=== PATIENT | female | born 1945 | race Caucasian/White ===

== ENCOUNTER 2019-10-16 15:00 | Inpatient (IN) | payer OTHER ==
[2019-10-16] MEDS ORDERED: ACETAMINOPHEN 500 MG TAB ONE (15:35)
[2019-10-16] MEDS ORDERED: NA CHLORIDE 0.9% 1,000 ML ONE (15:36)
[2019-10-16 16:01] LABS: Absolute Lymphocytes (CBC) 2.4 K/uL (0.7-4.9); Basophils % 0.3 % (0-1.3); Hematocrit 40.8 % (36.0-45.0); Lymphocytes % 8.4 % (15.3-44.8); MPV 9.7 fL (7.6-11.3); RBC Red Blood Cell Count 4.39 M/uL (3.86-4.86)
--- NOTE | 2019-10-16 16:03 | RAD REPORT ---
EXAM DESCRIPTION: CT - CTHCSPWOC - 10/16/2019 3:45 pm CLINICAL HISTORY: Trauma, head and neck injury. NUMBNESS/TINGLING COMPARISON: No comparisons TECHNIQUE: Axial 5 mm thick images of the head were obtained. Axial 2 mm thick images of the cervical spine were obtained with sagittal and coronal reconstruction images generated and reviewed. All CT scans are performed using dose optimization technique as appropriate and may include automated exposure control or mA/KV adjustment according to patient size. FINDINGS: CT HEAD WITHOUT CONTRAST: No acute hemorrhage, hydrocephalus or extra-axial collection is identified.No areas of brain edema or midline shift. The paranasal sinuses and mastoids are clear.The calvarium is intact. Right scalp hematoma is present . CT CERVICAL SPINE WITHOUT CONTRAST: No fracture or subluxation.Prominent disc thinning with posterior osteophyte is present at C3-4 and C 5-6.No prevertebral soft tissues swelling is identified. Several vague ground-glass nodules are seen in the right upper lobe, incompletely assessed. Atherosclerosis of both carotid bulbs noted. IMPRESSION: No acute intracranial or cervical spine findings.
--- NOTE | 2019-10-16 16:03 | RAD REPORT ---
EXAM DESCRIPTION: RAD - C Spine Ap/Lat - 10/16/2019 3:57 pm CLINICAL HISTORY: PAIN COMPARISON: Head C Spine Mpr Wo Con dated 10/16/2019 FINDINGS: Cervical bodies are normal in height and alignment.No fracture or acute bony process seen. Disc thinning with posterior osteophyte formation is present at C3-4 and C5-6. No prevertebral soft tissue thickening or other suspicious soft tissue finding. Carotid atherosclerosis. IMPRESSION: Moderate cervical degenerative changes.
[2019-10-16 16:04] LABS: Protime INR 1.01
[2019-10-16 16:12] LABS: Albumin 3.4 g/dL (3.4-5.0); Bilirubin Direct 0.2 mg/dL (0-0.2); Bilirubin Total 0.8 mg/dL (0.2-1.0); CKMB Creatine Kinase MB 1.6 ng/mL (0.3-3.6); Potassium 3.6 mmol/L (3.5-5.1); Protein, Total 6.7 g/dL (6.4-8.2); Troponin (Emerg Dept Use Only) 0.05 ng/mL (0.0-0.045)
--- NOTE | 2019-10-16 17:08 | RAD REPORT ---
EXAM DESCRIPTION: RAD - Chest Single View - 10/16/2019 5:01 pm CLINICAL HISTORY: CONGESTION Chest pain. COMPARISON: No comparisons FINDINGS: Portable technique limits examination quality. Mild areas of ill-defined opacities are seen in the right lung base and right upper lobe suspicious f or infiltrate/pneumonia. Left lung is grossly clear. The heart is normal in size. No displaced fractu res. IMPRESSION: Mild areas of developing infiltrate/pneumonia in the right lung.
[2019-10-16] MEDS ORDERED: CEFTRIAXONE/SWI 1gm 1 GM/10 ML SYR ONE (17:27)
--- NOTE | 2019-10-16 17:29 | ER ---
Nurse's Notes [facility] Name: Concha Mark Age: 73 yrs Sex: Female : 1945 Arrival Date: 10/16/2019 Time: 15:01 Bed 6 Private MD: Cayetano Gibson R Diagnosis: Pneumonia in diseases classified elsewhere;Syncope and collapse Presentation: 10/16 15:07 Presenting complaint: Patient states: "Last night I was sick to my stomach a couple of iw time and then this morning I just didn't feel good, I was dizzy and the next thing I knew I was on the floor with a big knot in my head and my eye sight is just not clear since then and my jaws is really tight and my head is hurting" Patient appears pale, denies CP, SOB. Care prior to arrival: None. Mechanism of Injury: Fall from standing position. Trauma event details: Injury occurred in the [facility]. 15:07 Acuity: ISELA 2 iw 15:07 Method Of Arrival: Wheelchair iw 15:10 Transition of care: patient was not received from another setting of care. Onset of iw symptoms was October 16, 2019 at 10:30. Risk Assessment: Do you want to hurt yourself or someone else? Patient reports no desire to harm self or others. Initial Sepsis Screen: Does the patient meet any 2 criteria? No. Patient's initial sepsis screen is negative. Does the patient have a suspected source of infection? No. Patient's initial sepsis screen is negative. Triage Assessment: 15:14 General: Appears in no apparent distress. uncomfortable, Behavior is calm, cooperative, iw appropriate for age. Pain: Complains of pain in right jaw, left jaw and right temporal area Pain currently is 5 out of 10 on a pain scale. Neuro: Level of Consciousness is awake, alert, obeys commands. Cardiovascular: Patient's skin is warm and dry. Respiratory: Airway is patent Respiratory effort is even, unlabored, Respiratory pattern is regular, symmetrical. Trauma Activation: Not Applicable Physician: ED Physician; Name: ; Notified At: ; Arrived At: Physician: General Surgeon; Name: ; Notified At: ; Arrived At: Physician: Radiology; Name: ; Notified At: ; Arrived At: Physician: Respiratory; Name: ; Notified At: ; Arrived At: Physician: Lab; Name: ; Notified At: ; Arrived At: Historical: - Allergies: 15:14 "An antibiotic and a pain pill but I can't remember the name"; iw - Home Meds: 15:14 citalopram 40 mg tab 1 tab once daily [Active]; Iron CR Oral daily [Active]; iw atorvastatin 40 mg oral tab 1 tab once daily [Active]; propranolol 10 mg Oral tab 2 tabs twice daily [Active]; lisinopril 20 mg Oral tab 1 tab once daily [Active]; aspirin 81 mg Oral chew 1 tab once daily [Active]; temazepam 30 mg Oral cap 1 cap once daily [Active]; triamterene-hydrochlorothiazid 75-50 mg Oral tab 1 tab once daily [Active]; clopidogrel 75 mg oral tab 1 tab once daily [Active]; oxybutynin chloride 5 mg Oral tab 1 tab daily [Active]; - PMHx: 15:14 Myocardial infarction; Hypertension; Hyperlipidemia; iw - Immunization history:: Flu vaccine is not up to date. - Immunization history: Last tetanus immunization: unknown. - Coronavirus screen:: The patient has NOT traveled to [place], [place], or [place] in the past 14 days. - Social history:: Patient/guardian denies using alcohol, street drugs, The patient lives with family, with spouse, Smoking status: Patient/guardian denies using tobacco. - Family history:: not pertinent. - Ebola Screening: : Patient denies travel to an Ebola-affected area in the 21 days before illness onset. - Hospitalizations: : No recent hospitalization is reported. Screenin:07 Abuse screen: Denies threats or abuse. Denies injuries from another. Tuberculosis iw screening: No symptoms or risk factors identified. 15:26 Nutritional screening: No deficits noted. Fall Risk Secondary diagnosis (15 points) tw2 impaired mobility. Primary Survey: 15:07 NO uncontrolled hemorrhage observed. A: The patient is alert. Airway: patent. iw Breathing/Chest: Respiratory pattern: regular, Respiratory effort: spontaneous, unlabored. Circulation: Skin color: pale. Disability Alert. 15:26 Exposure/Environment: All clothing and personal items were removed. Forensic evidence tw2 collection is not deemed to be indicated at this time. Items placed in patient belonging bag. There is no evidence of uncontrolled external bleeding. Obvious injury(ies) are noted at this time: bruising and swelling noted to right forehead and right side of jaw A warming method has been applied: A warm blanket has been provided to the patient. 16:19 Reassessment Airway Airway Patent Breathing/Chest Respiratory pattern Regular tw2 Respiratory effort Spontaneous Unlabored Breath sounds Clear Chest inspection Symmetrical Circulation Heart rhythm Sinus rhythm Heart tones Present Disability Alert. Secondary Survey: 16:20 HEENT: Eyes: Other bruising noted above RIGHT eye, pt reports blurred vision when any tw2 pressure is placed on the back right side of head. Gastrointestinal: Abdomen is soft, Bowel sounds present in all quadrants. : No signs and/or symptoms were reported regarding the genitourinary system. Musculoskeletal: Range of motion: intact in all extremities. Assessment: 15:08 General: Appears in no apparent distress. well groomed, Behavior is calm, cooperative, tw2 appropriate for age. Pain: Complains of pain in face and right temporal area and right jaw. Neuro: Level of Consciousness is awake, alert, obeys commands, Oriented to person, place, time, situation. EENT: Reports blurred vision "when i lay on the back or right side of my head my vision is just not right". Cardiovascular: Heart tones S1 S2 Patient's skin is warm and dry. Respiratory: Airway is patent Respiratory effort is even, unlabored, Respiratory pattern is regular, symmetrical, Breath sounds are clear bilaterally. GI: No signs and/or symptoms were reported involving the gastrointestinal system. Abdomen is flat, Bowel sounds present X 4 quads. : No signs and/or symptoms were reported regarding the genitourinary system. Derm: Bruising that is bright red, yellow, on right temporal area and right jaw. Musculoskeletal: Range of motion: intact in all extremities. 16:39 Reassessment: Patient appears in no apparent distress at this time. No changes from tw2 previously documented assessment. Patient and/or family updated on plan of care and expected duration. Pain level reassessed. Patient is alert, oriented x 3, equal unlabored respirations, skin warm/dry/pink. 17:35 Reassessment: Dr Ruff at the bedside. sv 18:26 Reassessment: Patient appears in no apparent distress at this time. No changes from tw2 previously documented assessment. Patient and/or family updated on plan of care and expected duration. Pain level reassessed. Patient is alert, oriented x 3, equal unlabored respirations, skin warm/dry/pink. 19:30 General: Appears in no apparent distress. comfortable, Behavior is calm, cooperative, rr5 appropriate for age. Neuro: Level of Consciousness is awake, alert, obeys commands, Oriented to person, place, time, situation. Cardiovascular: Capillary refill < 3 seconds Patient's skin is warm and dry. Respiratory: Airway is patent Respiratory effort is even, unlabored, Respiratory pattern is regular, symmetrical. GI: No signs and/or symptoms were reported involving the gastrointestinal system. : No signs and/or symptoms were reported regarding the genitourinary system. EENT: Reports blurred vision. Derm: Skin temperature is warm Bruising that is bright red, yellow, on right jaw and temporal. Musculoskeletal: Circulation, motion, and sensation intact. Capillary refill < 3 seconds. Vital Signs: 15:07 BP 101 / 50; Pulse 76; Resp 18; Temp 97.8; Pulse Ox 94% on R/A; Weight 77.11 kg (R); iw Height 5 ft. 2 in. (157.48 cm) (R); Pain 5/10; 16:08 BP 107 / 53; Pulse 67; Resp 19; Pulse Ox 96% ; sv 17:27 BP 104 / 57; Pulse 63; Resp 14; Pulse Ox 96% ; sv 18:25 BP 109 / 53; Pulse 64; Resp 17; Pulse Ox 95% on R/A; tw2 19:30 BP 105 / 60; Pulse 65; Resp 19; Temp 98; Pulse Ox 99% ; rr5 20:00 BP 107 / 55; Pulse 80; Resp 19; Temp 97.7; Pulse Ox 97% ; rr5 15:07 Body Mass Index 31.09 (77.11 kg, 157.48 cm) iw [place] Coma Score: 15:07 Eye Response: spontaneous(4). Verbal Response: oriented(5). Motor Response: obeys iw commands(6). Total: 15. Trauma Score (Adult): 15:07 Eye Response: spontaneous(1); Verbal Response: oriented(1); Motor Response: obeys iw commands(2); Systolic BP: > 89 mm Hg(4); Respiratory Rate: 10 to 29 per min(4); [place] Score: 15; Trauma Score: 12 ED Course: 15:01 Patient arrived in ED. as 15:03 Cayetano Gibson MD is Private Physician. as 15:07 Patient has correct armband on for positive identification. iw 15:07 Patient maintains SpO2 saturation greater than 95% on room air. iw 15:08 Triage completed. iw 15:14 Arm band placed on Patient placed in an exam room. iw 15:23 Sandra Molina RN is Primary Nurse. tw2 15:27 Renee Jones MD is Attending Physician. ma2 15:28 Thermoregulation: warm blanket given to patient. tw2 15:34 EKG done, by ED staff, reviewed by Renee Jones MD. jb1 15:39 Inserted saline lock: 22 gauge in right wrist, using aseptic technique. Blood collected.tw2 15:46 CT Head C Spine In Process Unspecified. EDMS 15:57 XRAY C Spine Ap/lat In Process Unspecified. EDMS 16:19 Notified ED physician of a critical lab result(s). WBC 29.1. tw2 16:35 Straight cath inserted, using sterile technique, 18 Fr. Returned baldomero urine. Patient tw2 tolerated well. NOEMY Diaz served as odd job laborer. 17:04 CXR XRAY In Process Unspecified. EDMS 17:27 Aminah Ruff MD is Hospitalizing Provider. ma2 19:06 Thorax Wo Con In Process Unspecified. EDMS 19:14 Report given to Tawny SALGUERO and Josse SALGUERO. sv 20:02 No provider procedures requiring assistance completed. Patient admitted, IV remains in rr5 place. intact, No redness/swelling at site. Administered Medications: 15:35 Drug: Tylenol 500 mg Route: PO; tw2 16:13 Follow up: Response: No adverse reaction tw2 15:49 Drug: NS 0.9% 1000 ml Route: IV; Rate: 1 bolus; Site: right wrist; tw2 16:59 Follow up: Response: No adverse reaction; IV Status: Completed infusion; IV Intake: tw2 1000ml 19:40 Follow up: IV Status: Completed infusion; IV Intake: 1000ml aa1 18:16 Drug: Rocephin 1 grams Route: IV; Rate: calculated rate; Site: right wrist; tw2 18:22 Follow up: Response: No adverse reaction; IV Status: Completed infusion tw2 18:22 Drug: AZITHromycin 500 mg Route: IVPB; Infused Over: 1 hrs; Site: right wrist; tw2 19:30 Follow up: Response: No adverse reaction; IV Status: Completed infusion; IV Intake: rr5 250ml Intake: 16:21 PO: 30ml (Water); Total: 30ml. tw2 16:59 IV: 1000ml; Total: 1030ml. tw2 19:30 IV: 250ml; Total: 1280ml. rr5 19:40 IV: 1000ml; Total: 2280ml. aa1 Outcome: 16:38 Patient's length of stay in the Emergency Department was greater than 2 hours. d/t tw2 imagingPatient's length of stay extended due to 17:28 Decision to Hospitalize by Provider. ma2 20:18 Admitted to Med/surg accompanied by tech, via stretcher, room 206, with chart, Report rr5 called to caraz 20:18 Condition: stable 20:18 Instructed on the need for admit. 20:40 Patient left the ED. rr5 Signatures: Dispatcher [employer] EDMS Alexis George jbCarey Mercado, Tawny Garrido RN, RN RN [email or web address] Zuleyma Foote Irene, RN RN iw Sandra Molina RN RN tw2 Renee Jones MD MD ma2 Josse Martin, RN RN rr5 Corrections: (The following items were deleted from the chart) 16:25 16:12 BP 71 / 60; Pulse 104bpm; Resp 16bpm; Pulse Ox 88% RA; Pt placed on O2 \\T\\ 3L per sv NC. O2 sat up to 99%. Informed Dr Jones of the vitals, ordered to give NS 500 mls bolus.; sv 16:39 16:35 Straight cath inserted, using sterile technique, 18 Fr. Returned baldomero urine. tw2 Patient tolerated well. tw2
--- NOTE | 2019-10-16 17:29 | EDPHYS ---
Physician Documentation [facility] Name: Concha Mark Age: 73 yrs Sex: Female : 1945 Arrival Date: 10/16/2019 Time: 15:01 Bed 6 Private MD: Cayetano Gibson R ED Physician Renee Jones HPI: 10/16 17:24 This 73 yrs old Female presents to ER via Wheelchair with complaints of ma2 Passed Out Prior To Arrival, Fall Injury, Weakness. 17:24 The patient has experienced syncope. Onset: The symptoms/episode began/occurred ma2 gradually, 1 hour(s) ago. Associated injury: Head/face: forehead. Associated signs and symptoms: Pertinent negatives: blurred vision, combativeness, diaphoresis. The patient has not experienced similar symptoms in the past. Historical: - Allergies: 15:14 "An antibiotic and a pain pill but I can't remember the name"; iw - Home Meds: 15:14 citalopram 40 mg tab 1 tab once daily [Active]; Iron CR Oral daily [Active]; iw atorvastatin 40 mg oral tab 1 tab once daily [Active]; propranolol 10 mg Oral tab 2 tabs twice daily [Active]; lisinopril 20 mg Oral tab 1 tab once daily [Active]; aspirin 81 mg Oral chew 1 tab once daily [Active]; temazepam 30 mg Oral cap 1 cap once daily [Active]; triamterene-hydrochlorothiazid 75-50 mg Oral tab 1 tab once daily [Active]; clopidogrel 75 mg oral tab 1 tab once daily [Active]; oxybutynin chloride 5 mg Oral tab 1 tab daily [Active]; - PMHx: 15:14 Myocardial infarction; Hypertension; Hyperlipidemia; iw - Immunization history:: Flu vaccine is not up to date. - Immunization history: Last tetanus immunization: unknown. - Coronavirus screen:: The patient has NOT traveled to [place], [place], or [place] in the past 14 days. - Social history:: Patient/guardian denies using alcohol, street drugs, The patient lives with family, with spouse, Smoking status: Patient/guardian denies using tobacco. - Family history:: not pertinent. - Ebola Screening: : Patient denies travel to an Ebola-affected area in the 21 days before illness onset. - Hospitalizations: : No recent hospitalization is reported. ROS: 17:24 Constitutional: Negative for fever, chills, and weight loss. ma2 17:24 All other systems are negative. Exam: 17:24 Constitutional: This is a well developed, well nourished patient who is awake, alert, ma2 and in no acute distress. Chest/axilla: Normal chest wall appearance and motion. Nontender with no deformity. No lesions are appreciated. Cardiovascular: Regular rate and rhythm with a normal S1 and S2. No gallops, murmurs, or rubs. Normal PMI, no JVD. No pulse deficits. Respiratory: Lungs have equal breath sounds bilaterally, clear to auscultation and percussion. No rales, rhonchi or wheezes noted. No increased work of breathing, no retractions or nasal flaring. Abdomen/GI: Soft, non-tender, with normal bowel sounds. No distension or tympany. No guarding or rebound. No evidence of tenderness throughout. 17:24 Eyes: Pupils equal round and reactive to light, extra-ocular motions intact. Lids and lashes normal. Conjunctiva and sclera are non-icteric and not injected. Cornea within normal limits. Periorbital areas with no swelling, redness, or edema. ENT: Nares patent. No nasal discharge, no septal abnormalities noted. Tympanic membranes are normal and external auditory canals are clear. Oropharynx with no redness, swelling, or masses, exudates, or evidence of obstruction, uvula midline. Mucous membranes moist. Neck: Trachea midline, no thyromegaly or masses palpated, and no cervical lymphadenopathy. Supple, full range of motion without nuchal rigidity, or vertebral point tenderness. No Meningismus. MS/ Extremity: Pulses equal, no cyanosis. Neurovascular intact. Full, normal range of motion. Neuro: Awake and alert, GCS 15, oriented to person, place, time, and situation. Cranial nerves II-XII grossly intact. Motor strength 5/5 in all extremities. Sensory grossly intact. Cerebellar exam normal. Normal gait. Vital Signs: 15:07 BP 101 / 50; Pulse 76; Resp 18; Temp 97.8; Pulse Ox 94% on R/A; Weight 77.11 kg (R); iw Height 5 ft. 2 in. (157.48 cm) (R); Pain 5/10; 16:08 BP 107 / 53; Pulse 67; Resp 19; Pulse Ox 96% ; sv 17:27 BP 104 / 57; Pulse 63; Resp 14; Pulse Ox 96% ; sv 18:25 BP 109 / 53; Pulse 64; Resp 17; Pulse Ox 95% on R/A; tw2 19:30 BP 105 / 60; Pulse 65; Resp 19; Temp 98; Pulse Ox 99% ; rr5 20:00 BP 107 / 55; Pulse 80; Resp 19; Temp 97.7; Pulse Ox 97% ; rr5 15:07 Body Mass Index 31.09 (77.11 kg, 157.48 cm) iw Davidson Coma Score: 15:07 Eye Response: spontaneous(4). Verbal Response: oriented(5). Motor Response: obeys iw commands(6). Total: 15. Trauma Score (Adult): 15:07 Eye Response: spontaneous(1); Verbal Response: oriented(1); Motor Response: obeys iw commands(2); Systolic BP: > 89 mm Hg(4); Respiratory Rate: 10 to 29 per min(4); Davidson Score: 15; Trauma Score: 12 MDM: 15:27 Patient medically screened. ma2 17:24 Differential Diagnosis: idiopathic syncope, sepsis, vasovagal episode. Data reviewed: [facility] vital signs, nurses notes. Counseling: I had a detailed discussion with the patient and/or guardian regarding: the historical points, exam findings, and any diagnostic results supporting the discharge/admit diagnosis, the presence of at least one elevated blood pressure reading (>120/80) during this emergency department visit, the need for outpatient follow up. Response to treatment: the patient's symptoms have markedly improved after treatment. 10/16 15:30 Order name: Basic Metabolic Panel; Complete Time: 16:19 tn10/16 15:30 Order name: CBC with Diff 2 10/16 15:30 Order name: Ckmb; Complete Time: 16:19 tn10/16 15:30 Order name: CPK; Complete Time: 16:19 10/16 15:30 Order name: Hepatic Function; Complete Time: 16:19 tn10/16 15:30 Order name: Lipase; Complete Time: 16:19 tn10/16 15:30 Order name: Magnesium; Complete Time: 16:19 tn2 10/16 15:30 Order name: Protime (+inr); Complete Time: 16:21 ma2 10/16 15:30 Order name: Ptt, Activated; Complete Time: 16:21 ma2 10/16 15:30 Order name: Troponin (emerg Dept Use Only); Complete Time: 16:19 tn2 10/16 16:39 Order name: Urine Dipstick--Ancillary (enter results) 10/16 17:17 Order name: Blood Culture Adult (2) tn2 10/16 17:17 Order name: Lactate tn2 10/16 17:35 Order name: Manual Differential EDPA 10/16 15:30 Order name: XRAY C Spine Ap/lat; Complete Time: 16:11 tn2 10/16 15:30 Order name: CT Head C Spine; Complete Time: 16:11 tn2 10/16 16:22 Order name: CXR XRAY; Complete Time: 17:15 tn2 10/16 18:36 Order name: Echo with Doppler EDMS 10/16 18:36 Order name: CBC with Automated Diff EDMS 10/16 18:36 Order name: CBC with Automated Diff EDMS 10/16 18:36 Order name: Comprehensive Metabolic Panel EDMS 10/16 18:36 Order name: Comprehensive Metabolic Panel EDMS 10/16 18:36 Order name: Troponin I EDPA 10/16 18:36 Order name: Troponin I EDMS 10/16 18:38 Order name: Carotid Artery Bilateral EDMS 10/16 18:50 Order name: Sputum Gram Stain EDMS 10/16 18:50 Order name: Sputum Culture EDMS 10/16 18:51 Order name: Thorax Wo Con EDMS 10/16 15:30 Order name: EKG; Complete Time: 15:31 ma2 10/16 15:30 Order name: Cardiac monitoring; Complete Time: 15:30 ma2 10/16 15:30 Order name: EKG - Nurse/Tech; Complete Time: 15:30 tn2 10/16 15:30 Order name: IV Saline Lock; Complete Time: 15:46 ma2 10/16 15:30 Order name: Labs collected and sent; Complete Time: 15:46 ma2 10/16 15:30 Order name: NPO; Complete Time: 15:30 tn2 10/16 15:30 Order name: O2 Per Protocol; Complete Time: 15:30 [facility] 10/16 15:30 Order name: O2 Sat Monitoring; Complete Time: 15:30 [facility] 10/16 15:30 Order name: Urine Dipstick-Ancillary (obtain specimen); Complete Time: 16:40 [facility] 10/16 16:38 Order name: Straight Cath - Urine; Complete Time: 16:38 [facility] 10/16 18:36 Order name: CONS Pharmacy Consult [facility] 10/16 18:36 Order name: CONS Physician Consult [facility] 10/16 18:36 Order name: Heart Healthy [facility] 10/16 18:49 Order name: Social Service Consult [facility] Administered Medications: 15:35 Drug: Tylenol 500 mg Route: PO; tw2 16:13 Follow up: Response: No adverse reaction tw2 15:49 Drug: NS 0.9% 1000 ml Route: IV; Rate: 1 bolus; Site: right wrist; tw2 16:59 Follow up: Response: No adverse reaction; IV Status: Completed infusion; IV Intake: tw2 1000ml 19:40 Follow up: IV Status: Completed infusion; IV Intake: 1000ml aa1 18:16 Drug: Rocephin 1 grams Route: IV; Rate: calculated rate; Site: right wrist; tw2 18:22 Follow up: Response: No adverse reaction; IV Status: Completed infusion tw2 18:22 Drug: AZITHromycin 500 mg Route: IVPB; Infused Over: 1 hrs; Site: right wrist; tw2 19:30 Follow up: Response: No adverse reaction; IV Status: Completed infusion; IV Intake: rr5 250ml Disposition: 10/16/19 17:28 Hospitalization ordered by Aminah Ruff for Observation. Preliminary diagnosis are Pneumonia in diseases classified elsewhere, Syncope and collapse. - Bed requested for Telemetry/MedSurg (observation). - Status is Observation. rr5 - Condition is Stable. - Problem is new. - Symptoms are unchanged. Signatures: Dispatcher [employer] [facility] Ashli Schwarz RN RN bb Erika Lake RN RN Lia Sepulveda RN RN Sandra Molina RN RN tw2 Renee Jones MD MD tn2 Josse Martin RN RN rr5 Tawny Enrique RN aa1 Corrections: (The following items were deleted from the chart) 18:51 18:50 CT-CHEST WITHOUT CONTRAST ordered. EDMS EDMS 19:37 17:28 Hospitalization Ordered by Aminah Ruff MD for Observation. Preliminary cg diagnosis is Pneumonia in diseases classified elsewhere; Syncope and collapse. Bed requested for Telemetry/MedSurg (observation). Status is Observation. Condition is Stable. Problem is new. Symptoms are unchanged. ma2 20:17 19:37 10/16/2019 17:28 Hospitalization Ordered by Aminah Ruff MD for Observation. bb Preliminary diagnosis is Pneumonia in diseases classified elsewhere; Syncope and collapse. Bed requested for Telemetry/MedSurg (observation). Status is Observation. Condition is Stable. Problem is new. Symptoms are unchanged. cg 20:40 20:17 10/16/2019 17:28 Hospitalization Ordered by Aminah Ruff MD for Observation. rr5 Preliminary diagnosis is Pneumonia in diseases classified elsewhere; Syncope and collapse. Bed requested for Telemetry/MedSurg (observation). Status is Observation. Condition is Stable. Problem is new. Symptoms are unchanged. bb
[2019-10-16 17:35] LABS: Blood Morphology Comment NOT SEEN (NOT SEEN); Platelet Estimate ADEQ
[2019-10-16] MEDS ORDERED: AZITHROMYCIN IV 500 MG in NA CHLORIDE 0.9% 250 ML IVPB ONE (18:00)
[2019-10-16] MEDS ORDERED: GUAIFENESIN/DM 5 ML UCUP PO PRN (18:24)
[2019-10-16] MEDS ORDERED: MORPHINE 2 MG/ML SYR IV PRN (18:24)
[2019-10-16] MEDS ORDERED: ACETAMINOPHEN 325 MG TABLET PO PRN (18:24)
[2019-10-16] MEDS ORDERED: ONDANSETRON 4 MG/2 ML VIAL IV PRN ×2 (18:24→18:29)
[2019-10-16] MEDS ORDERED: ALBUTEROL 2.5 MG/3 ML NEB SOL NEB PRN ×2 (18:24→18:29)
[2019-10-16] MEDS ORDERED: HYDRALAZINE HCL 20 MG/ML VIAL IV PRN (18:24)
--- NOTE | 2019-10-16 18:40 | P.HP ---
Certification for Inpatient With expected LOS: >2 Midnights Patient will require the following post-hospital care: Home Health Services Practitioner: I am a practitioner with admitting privileges, knowledge of patient current condition, hospital course, and medical plan of care. Services: Services provided to patient in accordance with Admission requirements found in Title 42 Section 412.3 of the Code of Federal Regulations Patient History Date of Service: 10/16/19 Reason for admission: Weakness and syncope History of Present Illness: A 72-year-old female with past medical history of CAD, hypertension, hyperlipidemia on aspirin and Plavix,hx of of a valvular disease and follows with a advanced manager at [place], she state she is due for an Echo next month. She presented today after she developed headache, generalized malaise and nausea with abdominal discomfort since yesterday. She admits to history of recurrent dizziness which reveals multiple cold past blue with no findings. She developed dizziness today which was initially intermittent date resulted in a syncopal episode the patient was able to regain consciousness after the fall. She states she has heat her head on the ground. She denies any chest pain. She denies any shortness of breath. She admitted to cough but nonproductive. She admitted to recent antibiotics for the bronchitis 3 weeks ago He denies any cough contacts. She denies any fever or chills. She denies any dysuria, flank pain or hematuria. In the emergency room chest history shows multilobar infiltrate on the right lung as well as marked leukocytosis with WBC of 29 howver her lactic acid was normal Home medications list reviewed: Yes - Past Medical/Surgical History Diabetic: No -: Recurrent dizziness/syncope -: Hypertension -: CAD status previous [place]) - Family History Family History: Reviewed- Non-Contributory - Social History Smoking Status: Never smoker Alcohol use: No CD- Drugs: No Place of Residence: Home Review of Systems General: Weakness, Malaise Eyes: Unremarkable ENT: Nose Congestion, Unremarkable Respiratory: Cough, Dry Cardiovascular: Light Headedness, Unremarkable Gastrointestinal: Nausea, Abdominal Pain Musculoskeletal: Shoulder Pain, Arm Pain, Back Pain Integumentary: Bruising Neurological: Weakness Physical Examination - Physical Exam General: Alert, In no apparent distress, Oriented x3 HEENT: Atraumatic, Normocephalic, PERRLA, Mucous membr. moist/pink Neck: Supple, 2+ carotid pulse no bruit Respiratory: Clear to auscultation bilaterally, Crackles/rales (Right base) Cardiovascular: Normal pulses, Regular rate/rhythm, Normal S1 S2 Capillary refill: <2 Seconds Gastrointestinal: Normal bowel sounds, Soft and benign Musculoskeletal: No clubbing, No swelling Integumentary: No rashes Neurological: Normal speech, Sensation intact, Cranial nerves 3-12 intact - Studies Laboratory Data (last 24 hrs) 10/16/19 15:39: PT 11.9, INR 1.01, APTT 29.5 10/16/19 15:39: WBC 29.1 H*, Hgb 13.2, Hct 40.8, Plt Count 303 10/16/19 15:39: Sodium 138, Potassium 3.6, BUN 16, Creatinine 0.82, Glucose 158 H, Magnesium 2.0, Total Bilirubin 0.8, AST 18, ALT 25, Alkaline Phosphatase 70, Lipase 20 L Microbiology Data (last 24 hrs): Blood culture tests obtained in Imagings Data: EKG shows normal sinus rhythm at 73 beats per min. No ST segment changes Chest history shows the right hilar infiltrate as well as right base opacity Assessment and Plan - Problems (Diagnosis) (1) Pneumonia Current Visit: Yes Status: Acute (2) Multifocal pneumonia Current Visit: Yes Status: Acute (3) HTN (hypertension) Current Visit: Yes Status: Acute (4) Syncope and collapse Current Visit: Yes Status: Acute (5) History of OH (myocardial infarction) Current Visit: Yes Status: Acute Discharge Plan: Home Plan to discharge in: 48 Hours - Advance Directives Does patient have a Living Will: No Does patient have a Durable POA for Healthcare: No - Code Status/Comfort Care Code Status Assessed: Yes Physician Review: Patient Assessed, Agree with Above Assessment and Plan Physician Review Additional Text: # Multifocal Right Pneumonia - with marked leucocytosis - may be cause of fall -Given hsitory of symptoms 3 weeks ago ,and high level of wbc , will obtain CT chest to r/o abscess - start vanco.rocephin and zothromax now -follow blood cx -duonebs prn -sputum for c/s if able -tylenol as needed for fever or aches -start gentle IVF with LR # Syncope- may be due to pneumonia -will obtian carotid US and echo - place in tele -will consult cardiology # Elevated Troponin -mild at 0.05, may be demand mediated -follow cardiology and trend of troponin levels # HTN -bordelrine low , hold inderal for now # DVT prop- sc heparin Critical Care: No Time Spent Managing Pts Care (In Minutes): 67
[2019-10-16 18:56] LABS: Urine Blood NEGATIVE (NEG); Urine Glucose NEGATIVE (NEG); Urine Protein TRACE (NEG); Urine pH 6.5 (5.0-7.0)
--- NOTE | 2019-10-16 19:32 | RAD REPORT ---
EXAM DESCRIPTION: CT - Thorax Wo Con CLINICAL HISTORY: Chest pain multifocal pna , r/o abscess COMPARISON: Chest Single View dated 10/16/2019 FINDINGS: Goitrous enlargement of the left lobe of the thyroid is seen with substernal extension. Mu ltifocal ill-defined ground-glass opacities are present throughout the right lung suggesting atypical pneumonia. No abscess suspected. No pneumothorax. No pleural or pericardial fluid. No axillary, mediastinal or hilar adenopathy. No concerning bony finding. Cholecystectomy clips. Postsurgical changes about the stomach. All CT scans are performed using dose optimization technique as appropriate and may include automated exposure control or mA/KV adjustment according to patient size. IMPRESSION: Mild to moderate ill-defined ground-glass lung opacities are seen in the right lung, gre atest in the right lower lung field, likely representing atypical pneumonia.
--- NOTE | 2019-10-16 19:53 | RAD REPORT ---
EXAM DESCRIPTION: US - CP - 10/16/2019 7:31 pm CLINICAL HISTORY: cva Headache, drowsiness COMPARISON: Head C Spine Mpr Wo Con dated 10/16/2019 TECHNIQUE: Real-time sonographic evaluation of both carotid systems was performed. Doppler interroga tion was performed with waveform tracing bilaterally. FINDINGS: Normal high resistance waveforms are noted in both external carotid arteries. The common c arotid arteries and internal carotid arteries show normal low resistance waveforms. Moderate hard plaquing is seen in both proximal internal carotid arteries. There is stenosis of the p roximal right carotid bulb estimated less than 50%. There is stenosis of the proximal left internal c arotid artery estimated 50-70% based on NASCET criteria. Antegrade flow seen in both vertebral arteries. IMPRESSION: Moderate hard plaquing in both carotid bulbs, appearing slightly more prominent on the l eft. Moderate proximal left internal carotid artery stenosis suspected estimated at 50-70% based on NASCET criteria. Followup MRA of the neck may be of value for further assessment.
[2019-10-16 20:46] VITALS: BMI 32.4
[2019-10-16 21:04] VITALS: O2SAT 97
[2019-10-16] MEDS: IPRATROPIUM BROM 0.5MG/2.5ML NEB SCH (21:20)
[2019-10-16] MEDS ORDERED: VANCOMYCIN 1 GM/VIAL ONE (21:36)
[2019-10-16] MEDS: FAMOTIDINE 20 MG TAB PO SCH (21:38)
[2019-10-16] MEDS: GUAIFENESIN 600 MG SA TAB PO SCH (21:39)
[2019-10-16] MEDS: Ringers Lactate 1,000 ML IV SCH (21:40)
[2019-10-16] MEDS ORDERED: VANCOMYCIN 1.5 GM in NA CHLORIDE 0.9% 500 ML IVPB SCH (22:00)
[2019-10-16] MEDS ORDERED: NA CHLORIDE 0.9% 500 ML ONE (22:18)
[2019-10-17] MEDS: HEPARIN 5000 UNIT/ML 1 ML VIAL SQ SCH ×2 (00:22→09:00)
[2019-10-17] MEDS: IPRATROPIUM BROM 0.5MG/2.5ML NEB SCH (02:45)
[2019-10-17 06:26] LABS: Absolute Lymphocytes (CBC) 4.3 K/uL (0.7-4.9); Basophils % 0.4 % (0-1.3); Hematocrit 33.1 % (36.0-45.0); MPV 9.2 fL (7.6-11.3); RBC Red Blood Cell Count 3.55 M/uL (3.86-4.86)
[2019-10-17 06:45] LABS: ALT/SGPT 21 U/L (12-78); AST/SGOT 14 U/L (15-37); Albumin 2.7 g/dL (3.4-5.0); Alkaline Phosphatase 56 U/L (45-117); BUN Blood Urea Nitrogen 13 mg/dL (7-18); Bicarbonate 27 mmol/L (21-32); Bilirubin Total 0.4 mg/dL (0.2-1.0); Glucose Level 95 mg/dL (74-106); Potassium 3.2 mmol/L (3.5-5.1); Protein, Total 5.4 g/dL (6.4-8.2); Sodium Level 143 mmol/L (136-145); Troponin I 0.03 ng/mL (0.0-0.045)
[2019-10-17] MEDS: Ringers Lactate 1,000 ML IV SCH (08:20)
[2019-10-17] MEDS ORDERED: ASPIRIN 81 MG CHEWABLE TABLET PO SCH (09:00)
[2019-10-17] MEDS ORDERED: ENOXAPARIN 40 MG/0.4 ML SQ SCH (09:00)
[2019-10-17] MEDS ORDERED: VANCOMYCIN 1 GM in NA CHLORIDE 0.9% 500 ML IVPB SCH (09:00)
[2019-10-17] MEDS ORDERED: CLOPIDOGREL 75 MG TABLET PO SCH (09:00)
[2019-10-17 09:15] VITALS: BP 112/59; TEMP 98.4
[2019-10-17] MEDS ORDERED: POTASSIUM CL SA 10 MEQ TAB PO ONE (10:00)
--- NOTE | 2019-10-17 10:08 | P.DS ---
Admission Date: 10/16/19 Discharge Date: 10/17/19 Disposition: ROUTINE DISCHARGE Discharge Condition: FAIR Reason for Admission: Weakness and syncope - Problems (1) Pneumonia Current Visit: Yes Status: Acute (2) Multifocal pneumonia Current Visit: Yes Status: Acute (3) HTN (hypertension) Current Visit: Yes Status: Acute (4) Syncope and collapse Current Visit: Yes Status: Acute (5) History of [place] (myocardial infarction) Current Visit: Yes Status: Acute Brief History of Present Illness: A 72-year-old female with past medical history of CAD, hypertension, hyperlipidemia on aspirin and Plavix,hx of of a valvular disease and follows with a wool washer feeder at [place], she state she is due for an Echo next month. She presented today after she developed headache, generalized malaise and nausea with abdominal discomfort since yesterday. She admits to history of recurrent dizziness which reveals multiple cold past blue with no findings. She developed dizziness today which was initially intermittent date resulted in a syncopal episode the patient was able to regain consciousness after the fall. She states she has heat her head on the ground. She denies any chest pain. She denies any shortness of breath. She admitted to cough but nonproductive. She admitted to recent antibiotics for the bronchitis 3 weeks ago He denies any cough contacts. She denies any fever or chills. She denies any dysuria, flank pain or hematuria. In the emergency room chest history shows multilobar infiltrate on the right lung as well as marked leukocytosis with WBC of 29 howver her lactic acid was normal Hospital Course: Patient with history of chronic dizziness, history of CAD, HTN, admitted for dizziness, near-syncope. On admission she was noted with marked leukocytosis of 29k a with left shift as well as the chest x-ray findings of multilobar right lung pneumonia she was started on antibiotics. Cardiac enzymes were negative for acute coronary syndrome. A CT of the chest shows upper and lower lobe infiltrates of the right long with no abscess. Her WBC trended down to 16 times an. She did not have any cough. Blood culture shows no growth to date. She did not have any recurrence of dizziness during hospitalization. A carotid ultrasound shows likely significant 50-70% suspected left carotid artery stenosis. MRA of the of the neck was recommended. Patient is very anxious to go home today. She does not want to wait until Saturday for the MRI or Echo cardiology ordered. She understand the risk and states her wool washer feeder has been working on the chronic dizziness. She can be discharged home today since improving leukocytosis to 16,000 with p.o. antibiotics. Her diuretic medication were held as that could be contributing to dizziness. Her electrolytes with low potassium was replaced . She has been recommended to follow with her wool washer feeder or primary care physician in 3-5 days Vital Signs/Physical Exam: Temp Pulse Resp BP Pulse Ox 98.4 F 69 18 112/59 L 95 10/17/19 08:00 10/17/19 08:00 10/17/19 08:00 10/17/19 08:00 10/17/19 08:00 General: In no apparent distress, Oriented x3 HEENT: Atraumatic, Normocephalic, PERRLA, Mucous membr. moist/pink Neck: Supple, 2+ carotid pulse no bruit, JVD not distended Respiratory: Clear to auscultation bilaterally, Normal air movement Cardiovascular: Normal pulses, Regular rate/rhythm, Normal S1 S2 Gastrointestinal: Normal bowel sounds, Soft and benign, Non-distended Musculoskeletal: No clubbing, No swelling Integumentary: No rashes, No breakdown Neurological: Normal speech, Normal strength at 5/5 x4 extr Laboratory Data at Discharge: WBC 16.6 K/uL (4.3-10.9) H D 10/17/19 06:00 Hgb 10.7 g/dL (12.0-15.0) L D 10/17/19 06:00 Hct 33.1 % (36.0-45.0) L D 10/17/19 06:00 Plt Count 234 K/uL (152-406) D 10/17/19 06:00 PT 11.9 SECONDS (9.5-12.5) 10/16/19 15:39 INR 1.01 10/16/19 15:39 APTT 29.5 SECONDS (24.3-36.9) 10/16/19 15:39 Sodium 143 mmol/L (136-145) 10/17/19 06:00 Potassium 3.2 mmol/L (3.5-5.1) L 10/17/19 06:00 BUN 13 mg/dL (7-18) 10/17/19 06:00 Creatinine 0.53 mg/dL (0.55-1.3) L 10/17/19 06:00 Glucose 95 mg/dL (74-106) 10/17/19 06:00 Magnesium 2.0 mg/dL (1.8-2.4) 10/16/19 15:39 Total Bilirubin 0.4 mg/dL (0.2-1.0) 10/17/19 06:00 AST 14 U/L (15-37) L 10/17/19 06:00 ALT 21 U/L (12-78) 10/17/19 06:00 Alkaline Phosphatase 56 U/L (45-117) 10/17/19 06:00 Troponin I 0.03 ng/mL (0.0-0.045) 10/17/19 06:00 Lipase 20 U/L (73-393) L 10/16/19 15:39 Home Medications: Aspirin 81 mg PO DAILY 10/16/19 Atorvastatin Calcium 40 mg PO DAILY 10/16/19 Citalopram Hydrobromide [Citalopram HBr] 40 mg PO BEDTIME 10/16/19 Clopidogrel Bisulfate [Plavix*] 75 mg PO DAILY 10/16/19 Ferrous Sulfate [Feosol] 325 mg PO DAILY 10/16/19 Oxybutynin Chloride 5 mg PO DAILY 10/16/19 Propranolol [Inderal*] 10 mg PO BID 10/16/19 Temazepam 30 mg PO BEDTIME 10/16/19 lisinopriL [Lisinopril] 20 mg PO DAILY 10/16/19 Doxycycline Hyclate [Doryx] 200 mg PO BID #14 tablet. 10/17/19 Levofloxacin [Levaquin] 500 mg PO DAILY #7 tablet 10/17/19 guaiFENesin [Guaifenesin] 200 mg PO Q4HP PRN #10 tablet 10/17/19 New Medications: Doxycycline Hyclate [Doryx] 200 mg PO BID #14 tablet. guaiFENesin [Guaifenesin] 200 mg PO Q4HP PRN #10 tablet PRN Reason: Cough Levofloxacin [Levaquin] 500 mg PO DAILY #7 tablet Patient Discharge Instructions: -PCP in 1 week. - Follow up with your Cardiology in 3-5 days for follow up of your left carotid stenosis Diet: Low sodium Activity: Ad selene Time spent managing pt's care (in minutes): 39
[2019-10-17] MEDS: FAMOTIDINE 20 MG TAB PO SCH (10:19)
[2019-10-17] MEDS: GUAIFENESIN 600 MG SA TAB PO SCH (10:19)
--- NOTE | 2019-10-17 11:38 | CON ---
History Of Present Illness: Mrs. Mark is 73. She is in the hospital because she fell, was miky y in the morning. She had not taken any of her usual medicines. She stood up and had an unwitnessed fall. She awakened on the floor. No tongue biting, bladder or bowel incontinence. She has had num erous spells of dizziness, chronically orthostatic, but this spell happened to be worse. There was n o cough, hemoptysis. The night before, she had vomited a few times. Since being in the hospital, it looks like she may have a pulmonary infiltrate or atypical pneumonia. She is being treated with cef triaxone and azithromycin. Her blood pressures when she first came in supine were 101/50. Nobody ch ecked orthostatic vital signs. Today, the blood pressures are a little higher, 120/60 was recorded. Again, no orthostatic vital signs. The patient has a history of it sounds like she had a transcutan eous aortic valve replacement, and she has had coronary heart disease with intracoronary stents. 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 Her carotid artery shows moderate stenosis, not at a threshol d level for getting surgery, and there is no evidence of subclavian steal syndrome or stroke or other vascular disease on other studies. The patient sees a automatic bandsaw tender in [place], [place], regularly and will see him either this month or November and have another evaluation. The patient's outpatient medic ations have been iron sulfate, oxybutynin, triamterene and hydrochlorothiazide, Plavix, lisinopril, t emazepam, propranolol, atorvastatin, citalopram, and aspirin. Physical Examination: General: She is obese, alert, oriented, pleasant, not in distress. Lungs: Clear. Cardiac: Within normal limits. I do not hear any evidence of a murmur from her prosthetic valve. Laboratory Data: Her white blood cell count was elevated with a marked left shift. White blood cell count is coming down today. On telemetry, she has had nothing but sinus rhythm. Impression: Mrs. Mark fainted because of low blood pressure. She is chronically orthostatic an d has to be very careful of symptoms. It seems like in addition to that, she had pneumonia without a fever, although it may have been the cause of her vomiting the night before. She has a history of g astric bypass surgery and seems accustomed to having nausea and vomiting occasionally and she did not think much of it. I suspect she has worsening orthostatic symptoms causing syncope because of under lying pneumonia and chronic orthostatic hypotension. LINDSEY/LIZZETTE Voice ID: [id number] Report ID: [id number]
[2019-10-17] MEDS ORDERED: CEFTRIAXONE 1 GM/NS 50 ML 1 GM/50 ML BAG IV SCH (18:00)
[2019-10-17] MEDS ORDERED: CEFTRIAXONE/SWI 1gm 1 GM/10 ML SYR IV SCH (18:00)
[2019-10-17] MEDS ORDERED: CITALOPRAM 10 MG TABLET PO SCH (21:00)
[2019-10-17] MEDS ORDERED: TEMAZEPAM 15 MG CAP PO SCH (21:00)
--- NOTE | 2019-10-18 06:30 | EKG ---
Test Date: 2019-10-16 Test Time: 15:31:26 Loading Inspector: JOSÉ MEASUREMENT RESULTS: Intervals: Rate: 73 CO: 134 QRSD: 90 QT: 412 QTc: 453 [place]: P: 44 CO: 134 QRS: 4 T: 21 INTERPRETIVE STATEMENTS: Normal sinus rhythm Inferior infarct, age undetermined Abnormal ECG No previous ECG available for comparison Electronically Signed On 10-18-19 06:29:56 [employer]AM [employer]BER by Jakob Marks
== END 2019-10-17 11:04 | disposition home or self-care (01) | DRG 195 ==
LOC: ER 15:00 → ERHOLD 19:14 → 2ND 20:18
PROVIDERS: ADMIT Internal Medicine; ATTEND Internal Medicine
DX: J18.1 Lobar pneumonia, unspecified organism (principal); I95.1 Orthostatic hypotension; R79.89 Other specified abnormal findings of blood chemistry; I10 Essential (primary) hypertension; E78.5 Hyperlipidemia, unspecified; I25.10 Atherosclerotic heart disease of native coronary artery without angina pectoris; I25.2 Old myocardial infarction; Z98.84 Bariatric surgery status
CPT/HCPCS: 36415; 51702; 70450; 71045; 71250; 72040; 72125; 80048; 80053; 80076; 81003; 82550; 82553; 83605; 83690; 83735; 84484; 85025; 85610; 85730; 87040; 93005; 93880; 94640; 96361; 96365; 96375; 97161; 99285; J0456; J0696; J1644; J1650; J7030; J7040; J7120